=== PATIENT | female | born 1940 | race African-American/Black ===

== ENCOUNTER 2019-01-19 17:07 | Emergency (ER) | payer MEDICAID ==
[~2019-01-19] VITALS: Ht 172.7 cm; Wt 80.0 kg
[2019-01-19 17:38] LABS: HEMATOCRIT 32.1 % (37.0-47.0); IMMATURE GRANULOCYTES 0.3 % (0.0-5.0); MEAN CORPUSCULAR HGB 30.6 pG CALC (26.0-32.0); MEAN CORPUSCULAR HGB CONC 32.7 g/L CALC (32.0-36.0); NEUT# 5.45 thou/uL (2.00-7.15); RED BLOOD COUNT 3.43 mill/uL (4.20-5.60); RED CELL DISTRI WIDTH 12.5 % (11.5-15.5)
[2019-01-19 17:40] LABS: HEMOGLOBIN 10.5 g/dl (12.0-16.0); MEAN CELL VOLUME 93.6 fL CALC (80.0-100.0)
[2019-01-19 17:46] LABS: ANION GAP 13 (6-22 (CALC)); BUN 18 mg/dL (8-23); BUN/CREATININE RATIO 18 (12-20 (CALC)); CARBON DIOXIDE 29 mmol/l (22-30); CHLORIDE 98 mmol/l (95-108); GFR 53 ML/MIN (>=60 (CALC)); GFR FOR AFR.AMER. > 60 ML/MIN (>=60 (CALC)); POTASSIUM 3.8 mmol/l (3.5-5.1)
[2019-01-19] MEDS ORDERED: HYDROCHLOROT12.5 MG PO (17:46)
[2019-01-19] MEDS ORDERED: ASPIRIN81 MG PO (17:47)
[2019-01-19] MEDS ORDERED: COREG25 MG PO (17:47)
[2019-01-19] MEDS ORDERED: CENTRUM PO (17:48)
[2019-01-19] MEDS ORDERED: DOCUSATE SOD100 MG PO (17:48)
[2019-01-19 17:54] LABS: SODIUM 136 mmol/l (137-146)
[2019-01-19 18:36] VITALS: BP 117/58
== END 2019-01-19 18:47 | disposition home or self-care (01) ==
LOC: ED 17:07
PROVIDERS: Family Medicine
DX: R55 Syncope and collapse (principal); E11.9 Type 2 diabetes mellitus without complications; R94.31 Abnormal electrocardiogram [ECG] [EKG]

== ENCOUNTER 2019-03-14 21:31 | Emergency (ER) | payer MEDICAID ==
[~2019-03-14] VITALS: Ht 152.4 cm; Wt 77.0 kg
[~2019-03-14 21:31] MED LIST: ASPIRIN81 MG PO; CENTRUM PO; COREG25 MG PO; DOCUSATE SOD100 MG PO; HYDROCHLOROT12.5 MG PO
[2019-03-14] MEDS ORDERED: AMLODIPINE BESY10 MG PO (21:51)
[2019-03-14 22:09] LABS: HEMATOCRIT 35.2 % (37.0-47.0); HEMOGLOBIN 11.6 g/dl (12.0-16.0); IMMATURE GRANULOCYTES 0.4 % (0.0-5.0); MEAN CELL VOLUME 91.7 fL CALC (80.0-100.0); MEAN CORPUSCULAR HGB 30.2 pG CALC (26.0-32.0); NEUT# 7.26 thou/uL (2.00-7.15); RED BLOOD COUNT 3.84 mill/uL (4.20-5.60); RED CELL DISTRI WIDTH 12.6 % (11.5-15.5)
[2019-03-14 22:20] LABS: ALBUMIN 4.3 g/dL (3.2-5.0); ALKALINE PHOSPHATASE 77 u/l (38-126); ANION GAP 11 (6-22 (CALC)); BUN 12 mg/dL (8-23); BUN/CREATININE RATIO 12 (12-20 (CALC)); CARBON DIOXIDE 33 mmol/l (22-30); CHLORIDE 96 mmol/l (95-108); CREATININE 0.9 mg/dL (0.5-1.0); GFR 60 ML/MIN (>=60 (CALC)); GFR FOR AFR.AMER. > 60 ML/MIN (>=60 (CALC)); POTASSIUM 4.2 mmol/l (3.5-5.1); SGOT/AST 27 u/l (9-36); SODIUM 136 mmol/l (137-146); TOTAL PROTEIN 8.1 g/dL (6.3-8.2)
[2019-03-14 22:21] LABS: BILIRUBIN, TOTAL 0.4 mg/dL (0.0-1.4)
[2019-03-14 22:32] LABS: MYOGLOBIN 43 ng/mL (0 - 62)
[2019-03-14 23:32] LABS: URINE BILIRUBIN - DIPSTICK NEGATIVE (NEGATIVE); URINE BLOOD DIPSTICK NEGATIVE (NEGATIVE); URINE COLOR YELLOW; URINE GLUCOSE - DIPSTICK NEGATIVE (NEGATIVE); URINE KETONE NEGATIVE (NEGATIVE); URINE LEUK ESTERASE NEGATIVE (NEGATIVE); URINE NITRITE - DIPSTICK NEGATIVE (Negative); URINE PROTEIN - DIPSTICK 30 mg/dL (NEG-TRACE); URINE SPECIFIC GRAVITY 1.015; URINE UROBILINOGEN - DIPSTICK 0.2 E.U./dL (0.2)
[2019-03-15 00:12] LABS: URINE SQUAMOUS EPITHELIAL CELL FEW EPI/hpf (0-FEW)
[2019-03-15 00:40] VITALS: BP 170/82
== END 2019-03-15 00:40 | disposition home or self-care (01) ==
LOC: ED 21:31
PROVIDERS: Emergency Medicine
DX: R53.1 Weakness (principal); I10 Essential (primary) hypertension; G31.84 Mild cognitive impairment of uncertain or unknown etiology; R51 Headache; R22.32 Localized swelling, mass and lump, left upper limb

== ENCOUNTER 2019-06-29 10:58 | Emergency (ER) | payer MEDICAID ==
[~2019-06-29] VITALS: Ht 167.6 cm; Wt 94.8 kg
[~2019-06-29 10:58] MED LIST changes: +AMLODIPINE BESY10 MG PO
[2019-06-29 14:20] VITALS: BP 129/79
== END 2019-06-29 14:20 | disposition home or self-care (01) ==
LOC: ED 10:58
DX: M79.661 Pain in right lower leg (principal); R22.41 Localized swelling, mass and lump, right lower limb; I10 Essential (primary) hypertension; E11.9 Type 2 diabetes mellitus without complications

== ENCOUNTER 2019-11-12 | Emergency (ER) | payer MEDICAID ==
[2019-11-12 13:06] LABS: HEMOGLOBIN 11.2 g/dl (12.0-16.0); IMMATURE GRANULOCYTES 0.4 % (0.0-5.0); MEAN CELL VOLUME 91.6 fL CALC (80.0-100.0); MEAN CORPUSCULAR HGB 30.2 pG CALC (26.0-32.0); MEAN CORPUSCULAR HGB CONC 32.9 g/dL CAL (32.0-36.0); NEUT# 5.69 thou/uL (2.00-7.15); RED BLOOD COUNT 3.71 mill/uL (4.20-5.60); RED CELL DISTRI WIDTH 12.3 % (11.5-15.5)
[2019-11-12 13:10] LABS: ALBUMIN 3.8 g/dL (3.2-5.0); ALKALINE PHOSPHATASE 72 u/l (38-126); ANION GAP 12 (6-22 (CALC)); BILIRUBIN, TOTAL 0.5 mg/dL (0.0-1.4); BUN 10 mg/dL (8-23); BUN/CREATININE RATIO 12 (12-20 (CALC)); CARBON DIOXIDE 28 mmol/l (22-30); CHLORIDE 97 mmol/l (95-108); CREATININE 0.8 mg/dL (0.5-1.0); GFR > 60 ML/MIN (>=60 (CALC)); GFR FOR AFR.AMER. > 60 ML/MIN (>=60 (CALC)); POTASSIUM 3.8 mmol/l (3.5-5.1); SGOT/AST 24 u/l (9-36); SODIUM 134 mmol/l (137-146); TOTAL PROTEIN 7.3 g/dL (6.3-8.2)
[2019-11-12] MEDS ORDERED: CLONIDINE0.2 MG PO (17:27)
== END 2019-11-12 17:23 | disposition home or self-care (01) ==
PROVIDERS: Family Medicine
DX: R55 Syncope and collapse (principal); I10 Essential (primary) hypertension; E11.9 Type 2 diabetes mellitus without complications